=== PATIENT | female | born 2000 | race Caucasian/White ===

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

== ENCOUNTER 2019-01-31 19:59 | Observation (INO) | payer BC ==
[2019-01-31] MEDS ORDERED: Famotidine IV* 10 MG/ML 2 ML (20 mg) ONE ×2 (20:13→20:17)
[2019-01-31] MEDS ORDERED: diPHENhydraMINE IV* 50 MG/ML 1 ml VIAL (BENADRYL) ONE (20:17)
[2019-01-31] MEDS ORDERED: methylPREDNISolone 125 MG* 2 ML VIAL ONE (20:17)
[2019-01-31] MEDS ORDERED: Ondansetron INJ* 2 MG/ML VIAL IV ONE (20:18)
[2019-01-31] MEDS ORDERED: Ondansetron INJ* 2 MG/ML VIAL ONE (20:18)
[2019-01-31] MEDS ORDERED: methylPREDNISolone 125 MG* 2 ML VIAL IV ONE (20:27)
[2019-01-31] MEDS ORDERED: diPHENhydraMINE IV* 50 MG/ML 1 ml VIAL (BENADRYL) IV ONE (20:27)
--- NOTE | 2019-01-31 20:27 | ED ---
Allergic Reaction/Systemic - HPI Summary HPI Summary: The pt is a 18 yr old female presenting to [facility] via EMS c/o allergic reaction beginning 30 minutes [employer]. She was at [facility] and ate a piece of chocolate that had other ingredients listed on it. Immediately after ingesting the piece of chocolate she became SOB and felt her throat tightening. She took 40 mg of Benadryl afterwards but vomited it up 3-4 minutes later. Per the roommate, the pt is developing allergies and does not know exactly what she is allergic to at this point. The pt notes that she has had an allergic reaction of similar severity only once prior to this episode. She self-administered an epi-pen and was given 50 mg Benadryl in the EMS. Pain severity is rated a 2/10. No aggravating factors noted. She also reports nausea, coughing, and chest tightness. - History of Current Complaint Chief Complaint: EDAllergicReaction Hx Obtained From: Patient Onset/Duration: Sudden Onset, Started minutes ago - 30 minutes, Still Present Timing: Constant, Lasting Minutes Severity Initially: Moderate Severity Currently: Mild Pain Intensity: 2 Pain Scale Used: 0-10 Numeric Location: Discrete @ - throat Aggravating Factor(s): Nothing Alleviating Factor(s): Epinephrine, Other - benadryl Associated Signs And Symptoms: Positive: Difficulty Breathing, Nausea, Throat Tightening, Vomiting, Other: - pos - cough, chest tightness - Allergies/Home Medications Allergies/Adverse Reactions: Allergies Allergy/AdvReac Type Severity Reaction Status Date / Time almond Allergy Anaphylatic Verified 01/31/19 20:18 Shock avocado Allergy Unknown Verified 01/31/19 20:57 Reaction Details birch Allergy Anaphylatic Verified 01/31/19 20:18 Shock carrot Allergy Unknown Verified 01/31/19 20:57 Reaction Details cashew nut Allergy Unknown Verified 01/31/19 20:57 Reaction Details celery Allergy Unknown Verified 01/31/19 20:57 Reaction Details cucumber Allergy Unknown Verified 01/31/19 20:57 Reaction Details fish derived Allergy Anaphylatic Verified 01/31/19 20:18 Shock garlic Allergy Unknown Verified 01/31/19 20:57 Reaction Details grass pollen Allergy Unknown Verified 01/31/19 20:57 Reaction Details mold Allergy Unknown Verified 01/31/19 20:18 Reaction Details mushroom Allergy Unknown Verified 01/31/19 20:57 Reaction Details onion Allergy Unknown Verified 01/31/19 20:57 Reaction Details peach Allergy Unknown Verified 01/31/19 20:18 Reaction Details peanut Allergy Unknown Verified 01/31/19 20:57 Reaction Details pecan nut Allergy Anaphylatic Verified 01/31/19 20:18 Shock pistachio nut Allergy Anaphylatic Verified 01/31/19 20:57 Shock ragweed pollen Allergy Unknown Verified 01/31/19 20:57 Reaction Details shellfish derived Allergy Anaphylatic Verified 01/31/19 20:18 Shock squash Allergy Unknown Verified 01/31/19 20:57 Reaction Details tomato Allergy Unknown Verified 01/31/19 20:57 Reaction Details Home Medications: Home Medications Albuterol HFA INHALER* [Ventolin HFA Inhaler*] 2 puff INH Q4H PRN 01/31/19 [ History Confirmed 01/31/19] Cetirizine* [ZyrTEC 10 MG TAB*] 10 mg PO DAILY 01/31/19 [History Confirmed 01/31] EPINEPHrine [Epinephrine] 0.3 mg INJ SEE INSTRUCTIONS 01/31/19 [History Confirmed 01/31/19] Fluticas/Salmet 115/21 HFA(NF) [Advair HFA 115/21 (NF)] 2 puff INH BID 01/31/19 [History Confirmed 01/31/19] Fluticasone HFA 110 mcg(NF) [Flovent HFA 110 mcg(NF)] 1 puff INH DAILY 01/31/19 [History Confirmed 01/31/19] PMH/Surg Hx/FS Hx/Imm Hx Endocrine/Hematology History: Denies: Hx Diabetes Cardiovascular History: Reports: Hx Syncope Denies: Hx Hypertension Sensory History: Reports: Hx Contacts or Glasses Denies: Hx Hearing Aid Opthamlomology History: Reports: Hx Contacts or Glasses Neurological History: Reports: Other Neuro Impairments/Disorders - Syncope - Surgical History Surgical History: None Surgery Procedure, Year, and Place: None. Infectious Disease History: No Infectious Disease History: Denies: Traveled Outside the [place] in Last 30 Days - Family History Known Family History: Positive: Other - breast CA, leukemia - Social History Alcohol Use: Weekly Alcohol Amount: "socially" Hx Substance Use: No Substance Use Type: Reports: None Hx Tobacco Use: No Smoking Status (MU): Never Smoked Tobacco Review of Systems - ROS Summary Review of Systems Summary: Home Medications Medication Instructions Recorded Confirmed Type Ferrous Sulfate TAB* 325 mg PO DAILY 08/08/17 08/08/17 History Methylphenidate ER TAB* [Concerta 72 mg PO QAM 08/08/17 08/08/17 History ER TAB*] Methylphenidate TAB* [Ritalin TAB*] 10 mg PO DAILY 08/08/17 08/08/17 History Acetaminophen TAB* [Tylenol TAB*] 650 mg PO Q4H PRN tab 08/10/17 Rx Amoxicillin PO (*) [Amoxicillin 500 mg PO TID #27 cap 08/10/17 Rx 500 MG CAP*] Benzocaine/Menthol ESPINOZA* 1 espinoza PO Q6H PRN lozenge 08/10/17 Rx [Chloraseptic ESPINOZA*] Ibuprofen TAB* [Motrin TAB* 600 MG] 600 mg PO Q8H PRN tab 08/10/17 Rx predniSONE TAB* [Deltasone 20 MG 20 mg PO DAILY #3 tab 08/10/17 Rx TAB*] Positive: Other - pos - throat tightness Positive: Other - pos - chest tightness Positive: Shortness Of Breath, Cough Positive: Vomiting, Nausea All Other Systems Reviewed And Are Negative: Yes Physical Exam - Summary Physical Exam Summary: General: Well-developed, Well-nourished female. Appears in moderate respiratory discomfort. HEENT: Normocephalic, Atraumatic. Eyes: Conjuctiva normal, PERRL. Ears: TMs within normal limits. Nares: (-) discharge, (-) erythema. Oropharynx: Clear, mucous membranes moist, (-) exudates, Hives present on the inside of mouth. Neck: Soft, FROM, (-) lymphadenopathy, (-) thyromegaly, (-) JVD. Cardiovascular: Normal sinus rhythm, (-) murmur. Lungs: Clear to auscultation bilaterally (-) wheezes, (-) rales, (-) rhonchi. Abdomen: Soft, non-tender, non-distended, (-) organomegaly, normal bowel sounds. Back: (-) CVA tenderness Extremities: No edema. Skin: Warm, dry, (-) rash. Neuro: Alert and oriented x3, no focal deficits. Psychiatric: Moderately anxious appearing. Triage Information Reviewed: Yes Vital Signs On Initial Exam: Initial Vitals Temp Pulse Resp BP Pulse Ox 99.3 F 115 17 138/84 100 01/31/19 20:01 01/31/19 20:01 01/31/19 20:01 01/31/19 20:01 01/31/19 20:01 Vital Signs Reviewed: Yes Procedures - Sedation Patient Received Moderate/Deep Sedation with Procedure: No Diagnostics - Vital Signs Vital Signs Temp Pulse Resp BP Pulse Ox 01/31/19 20:01 99.3 F 115 17 138/84 100 - Laboratory Result Diagrams: 01/31/19 21:14 01/31/19 21:14 Lab Statement: Any lab studies that have been ordered have been reviewed, and results considered in the medical decision making process. - Radiology CXR Radiology Interpretation Completed By: ED Physician Summary of Radiographic Findings: No obvious infiltrate, no pleural effusions, no pneumothorax. Pending official report. Allergic Reaction Course/Dx - Course Course Of Treatment: The pt is a 18 yr old female presenting to [facility] via EMS c/ o allergic reaction beginning 30 minutes [employer]. Test results normal except for WBC @ 12.8, Hgb @ 11.9, MPV @ 6.9, Absolute Neuts @ 8.7, Potassium @ 3.1, CO2 @ 20, Glucose @ 166, Calcium @ 7.8, and Total protein @ 6.2. A CXR reveals: No obvious infiltrate, no pleural effusions, no pneumothorax. Pending official report. In the ED course pt was given 3000 mls fluids, 1mg Ativan, and 8 mg Zofran. Final Dx is allergic reaction. Dr. Harp will admit the pt to [facility]. Pt is agreeable with this plan. - Diagnoses Provider Diagnoses: Allergic reaction - Provider Notifications Discussed Care Of Patient With: Jaida Harp - Dr. Harp will admit pt to [facility]. Time Discussed With Above Provider: 21:00 Instructed by Provider To: Admit As Inpatient Discharge ED - Sign-Out/Discharge Documenting (check all that apply): Patient Departure - admit - Discharge Plan Condition: Stable Disposition: ADMITTED TO [facility] - Billing Disposition and Condition Condition: STABLE Disposition: Admitted to [facility] - Attestation Statements Document Initiated by Scribe: Yes Documenting Scribe: Clark Camilo Provider For Whom Scribe is Documenting (Include Credential): Sylvie Spence MD Scribe Attestation: I, Clark Camilo, scribed for Sylvie Spence MD on 02/01/19 at 0553. Scribe Documentation Reviewed: Yes Provider Attestation: The documentation as recorded by the scribe, Clark Camilo accurately reflects the service I personally performed and the decisions made by me, Sylvie Spence MD Status of Scribe Document: Viewed
[2019-01-31] MEDS ORDERED: Famotidine IV* 10 MG/ML 2 ML (20 mg) IV SLOW PU ONE (20:29)
[2019-01-31] MEDS ORDERED: LORazepam INJ* 2 MG/ML 1 ML VIAL IV PUSH ONE (20:41)
[2019-01-31] MEDS ORDERED: LORazepam INJ* 2 MG/ML 1 ML VIAL ONE (20:41)
[2019-01-31] MEDS: NS 0.9% 1000 ML** 2,000 ML IV ONE (20:41)
[2019-01-31] MEDS ORDERED: Lorazepam PYXIS KEY ONE (20:41)
[2019-01-31] MEDS ORDERED: Lorazepam PYXIS KEY PRN (20:41)
[2019-01-31] MEDS ORDERED: EPINEPHRINE 1 MG/ML 1 ML VIAL ONE (20:43)
[2019-01-31] MEDS ORDERED: NS 0.9% 1000 ML** 1,000 ML IV ONE (21:05)
[2019-01-31 21:24] LABS: ABS Basophils 0.1 10^3/ul (0-0.2); ABS Lymphocytes 3.3 10^3/ul (1.0-4.8); ABS Monocytes 0.7 10^3/ul (0-0.8); ABS Neutrophils 8.7 10^3/ul (1.5-7.7); Eosinophil % 0.2 %; Hematocrit 35 % (35-47); Hemoglobin 11.9 g/dL (12.0-16.0); Lymphocyte % 25.8 %; Mean Corpuscular HGB Conc 34 g/dL (31-36); Mean Corpuscular Hemoglobin 31 pg (27-31); Mean Corpuscular Volume 91 fL (80-97); Mean Platelet Volume 6.9 fL (7.4-10.4); Platelet Count 348 10^3/uL (150-450); Red Blood Count 3.88 10^6 /uL (3.70-4.87); Red Cell Distribution Width 13 % (10-15); White Blood Count 12.8 10^3/uL (3.5-10.8)
[2019-01-31 21:43] LABS: ALT 13 U/L (7-52); AST 16 U/L (13-39); Albumin 3.8 g/dL (3.2-5.2); Albumin/Globulin Ratio 1.6 (1-3); Alkaline Phosphatase 38 U/L (34-104); BUN/Creatinine Ratio 15.6 (8-20); Blood Urea Nitrogen 10 mg/dL (6-24); CO2 Carbon Dioxide 20 mmol/L (22-32); Calcium 7.8 mg/dL (8.6-10.3); EGFR African American 143.1 (>60); EGFR Non-African American 118.3 (>60); Globulin 2.4 g/dL (2-4); Glucose 166 mg/dL (70-100); Potassium 3.1 mmol/L (3.5-5.0); Sodium 140 mmol/L (135-145); Total Protein 6.2 g/dL (6.4-8.9)
[2019-01-31 21:48] LABS: HCG Pregnancy < 0.60 mIU/mL
[2019-01-31] MEDS ORDERED: EPINEPHRINE 1 MG/ML 1 ML VIAL IM PRN (21:50)
[2019-01-31] MEDS ORDERED: Albuterol 2.5 MG/3 ML NEB.SOL* (0.083%) INH PRN (21:56)
[2019-01-31] MEDS ORDERED: Albuterol HFA INHALER* 8 gm MDI INH PRN (21:56)
[2019-01-31] MEDS ORDERED: Acetaminophen TAB* 325 MG PO PRN (21:57)
[2019-01-31] MEDS ORDERED: Al Hydrox/Mg Hydrox/Simet LIQ* 30 ML UDC PO PRN (21:57)
[2019-01-31] MEDS ORDERED: KCL 20 MEQ/100 ML IVPREMIX* 20 MEQ/100 ML BAG IV SCH (22:00)
[2019-01-31 22:19] LABS: Anion Gap 7 mmol/L (2-11); Chloride 113 mmol/L (101-111)
[2019-01-31] MEDS: Cetirizine* 10 MG TAB PO SCH (22:55)
[2019-01-31] MEDS ORDERED: Mometasone/Formoter 200/5 MDI INH SCH (23:45)
--- NOTE | 2019-02-01 00:02 | HP ---
CC: Dr. Santamaria, [facility], [place]; [facility] * HISTORY AND PHYSICAL: DATE OF ADMISSION: 01/31/19 PRIMARY CARE PROVIDER: Physician from [facility], [facility]. CHIEF COMPLAINT: Tingling in the throat, shortness of breath. HISTORY OF PRESENT ILLNESS: Corina Bhakta is a 18-year-old female who was diagnosed with multiple allergy problems this summer. She stated that after 08/08, for some reason, she started developing allergies and has been on several prednisone tapers. The last time she was on prednisone was for 10 days and she had been taking 40 mg daily, stopped it 4 days ago due to "running out of pills". She did not taper it down, she just discontinued it. She stated that she felt well for 3 or 4 days, but today, when she was eating a piece of chocolate snack, she started feeling tingling in her mouth and in her throat. Subsequently, she used an EpiPen and came into the ED for evaluation. Here, she received another 2 EpiPen and after the second EpiPen a dose of Solu-Medrol was administered. Due to multiple repetitive problems with shortness of breath as well as patient desaturating in the emergency department prior to the EpiPen administration, the patient is going to be placed on observation in the ICU. Please note that although patient's oxygen saturations were down and she felt a sensation of her throat closing, there was no description by the emergency department or the patient's nurse that the patient actually had an airway compromise that was visible on evaluation. PAST MEDICAL HISTORY: 1. History of multiple allergies that the patient developed this summer. She had been treated with multiple tapers of steroids. 2. History of ADHD. 3. History of anemia. 4. History of syncopal episodes in the past. PAST SURGICAL HISTORY: None. ALLERGIES: They are all dietary allergies, most of them, and include ALMOND, AVOCADO, BIRCH, CARROT, CASHEW NUT, CELERY, CUCUMBER, FISH DERIVED, GARLIC, GRASS and POLLEN, MOLD, MUSHROOM, ONION, PEACH, PEANUTS, PECANS, PISTACHIOS, RAGWEED POLLEN, SHELLFISH, SQUASH, and TOMATO. MEDICATIONS AT HOME: Include: 1. Advair 115/21 two inhalations b.i.d. 2. EpiPen as needed. 3. Zyrtec 10 mg daily. 4. Albuterol inhaler on a p.r.n. basis. 5. Flovent 110 mcg 1 inhalation daily. 6. Ritalin 10 mg daily. 7. Ferrous sulfate 325 mg daily. 8. Concerta ER 36 mg IM. FAMILY HISTORY: Mother with history of breast cancer, in remission. SOCIAL HISTORY: The patient is an [employer] student. She rarely drinks alcohol. She denies any tobacco or drug use. She is majoring in Chemistry. Her surrogate decision maker is her mother. REVIEW OF SYSTEMS: Please see history of present illness. Other remaining 12 systems were reviewed with the patient and were otherwise negative. PHYSICAL EXAMINATION GENERAL: The patient is a very pleasant 18-year-old female, who is in no acute distress. The patient is alert and oriented x3. VITAL SIGNS: Blood pressure of 143/78, heart rate of 116 and regular, respiratory rate 19, oxygen saturation of 100% on room air, temperature of 99.6. HEENT: Head atraumatic, normocephalic. Eyes: Pupils are equal and reactive to light and accommodation. Oropharynx with what appears to be two erythematous dots in the area of patient's hard palate distally. It appears to be abrasion- like related, but apart from that oropharynx is clear. Mucosa is moist. Tonsils not enlarged. There is no evidence of edema. There is no tongue edema noted. There is no lymphedema noted. NECK: Supple, no JVD. No bruits bilaterally. RESPIRATORY: Clear to auscultation bilaterally. CARDIOVASCULAR: Regular rate and rhythm. No murmur. ABDOMEN: Soft and nontender. Bowel sounds present in all 4 quadrants. EXTREMITIES: Pulses are +2 bilaterally. No clubbing or cyanosis. NEURO: Speech is clear. Cranial nerves II through XII are grossly intact. Motor strength is 5/5 bilaterally. SKIN: On evaluation of the skin, no ecchymotic areas or rashes noted. DIAGNOSTIC STUDIES/LAB DATA: Laboratory data showed sodium of 140, potassium of 3.1, chloride is pending, carbon dioxide 20, BUN 10, creatinine 0.64. Liver function is unremarkable. Beta hCG is below the testable. CBC: White blood cell count of 12.8, hemoglobin of 9.9, hematocrit of 35, and platelets of 348. Portable chest x-ray, reviewed by myself prior to the official radiologist's report, with no evidence of cardiopulmonary abnormalities and the cardiac silhouette appears normal. ASSESSMENT AND PLAN: 1. Allergic reaction, likely food reaction: The patient also mentioned that apart from the chocolate, that she had, she ate salmon, but she is apparently allergic to "fish derived products". She is going to be observed in the intensive care unit due to history of airway compromise in the emergency department that was alleviated by EpiPen and dose of Solu-Medrol. She is going to be continued on Solu-Medrol every 8 hours as well as her Zyrtec and Flovent. We will also continue albuterol inhaler on an as needed basis and albuterol nebulizer. She needs to be observed in the ICU due to her history of desaturations and possibility of airway compromise that was experienced in the emergency department. 2. The patient has history of multiple food allergies: The patient is planning to see Dr. Santamaria from [facility] at the beginning of February. We did discuss that she probably should be seen sooner with her problems since she had been on and off of prednisone for the past several months. 3. For DVT prophylaxis, the patient is going to be placed on ambulation and she is low risk. TIME SPENT: Approximately 55 minutes were spent on the admission of this patient, more than half that time was spent [id number] with the patient, doing the interview and physical exam. [id number]/CPS #: [id number] MARIA ELENA
[2019-02-01] MEDS ORDERED: Potassium Chlor TAB* 20 MEQ TAB.ER PO ONE (01:08)
[2019-02-01] MEDS: Mometasone/Formoter 200/5 MDI INH SCH ×2 (06:41→07:22)
[2019-02-01] MEDS ORDERED: methylPREDNISolone SOD 40 MG* 1 ML VIAL IV SCH (08:00)
[2019-02-01] MEDS ORDERED: Methylphenidate TAB* 10 MG PO SCH (09:00)
[2019-02-01] MEDS ORDERED: Methylphenidate ER TAB* 18 MG PO SCH (09:00)
[2019-02-01] MEDS ORDERED: Influenza VAC *QUAD* 2019-20* 0.5 ML SYRINGE IM ONE (09:00)
--- NOTE | 2019-02-01 10:26 | PN ---
Subjective Date of Service: 02/01/19 Interval History: HD2 18 F PMH ADD, food allergy who presented with sx of mouth tingling after eating food, concerning for anaphylaxisis. She was monitored in the ICU overnight on methylpred and benadryl s/p epipen use. Overnight, no acute events, VSS This morning, spoke with mother and daughter. No further episodes overnight, we discuss need for routine primary care, role anxiety may be playing as well as careful attention to allergy and not straying outside of known foods. Pt has no further complaints, would like to go home, long discussion about managing this better as outpt. Objective Active Medications: Acetaminophen (Tylenol Tab*) 650 mg PO Q4H PRN PRN Reason: PAIN-MILD/TEMP >/= 100.4 Al Hydrox/Mg Hydrox/Simethicone (Maalox Plus*) 30 ml PO Q6H PRN PRN Reason: INDIGESTION Albuterol (Ventolin 2.5 Mg/3 Ml Neb.Tabby*) 2.5 mg INH Q2H PRN PRN Reason: SOB/WHEEZING Albuterol (Ventolin Hfa Inhaler*) 2 puff INH Q4H PRN PRN Reason: SHORTNESS OF BREATH Cetirizine HCl (Zyrtec*) 10 mg PO DAILY [facility] Last Admin: 01/31/19 22:55 Dose: 10 mg Epinephrine HCl (Adrenalin 1 Mg/Ml) 0.3 mg IM ONCE PRN PRN Reason: sensation of throat closing Methylphenidate HCl (Concerta Er Tab*) 36 mg PO QAM [facility] Methylphenidate HCl (Ritalin Tab*) 10 mg PO DAILY [facility] Methylprednisolone Sodium Succinate (Solu-Medrol 40 Mg) 40 mg IV Q8H [facility] Last Admin: 02/01/19 08:59 Dose: 40 mg Miscellaneous (Ativan Pyxis Maynard) 1 ea N/A .ATIVAN IV MAYNARD PRN PRN Reason: PYXIS MAYNARD Mometasone Furoate (Asmanex 220 Mcg Mdi *) 1 puff INH QPM [facility] Mometasone Furoate/Formoterol Fumar (Dulera 200/5 Mdi*) 2 puff INH RT.BID [facility] Last Admin: 02/01/19 07:22 Dose: 2 puff Vital Signs - 8 hr 02/01/19 02/01/1919 03:00 03:02 03:32 Temperature Pulse Rate 81 81 Respiratory 15 16 18 Rate Blood Pressure 98/47 105/66 (mmHg) O2 Sat by Pulse 95 94 Oximetry 02/01/19 02/01/19 02/01/19 03:43 04:00 04:01 Temperature 98.8 F Pulse Rate 79 80 Respiratory 15 15 Rate Blood Pressure 100/52 (mmHg) O2 Sat by Pulse 97 97 Oximetry 02/01/19 02/01/19 02/01/19 05:00 05:01 05:38 Temperature Pulse Rate 81 80 75 Respiratory 9 14 18 Rate Blood Pressure 103/59 103/59 (mmHg) O2 Sat by Pulse 97 97 97 Oximetry 02/01/19 02/01/19 02/01/19 06:00 07:00 07:23 Temperature Pulse Rate 74 84 81 Respiratory 17 14 20 Rate Blood Pressure 111/68 100/53 (mmHg) O2 Sat by Pulse 99 96 96 Oximetry 02/01/19 02/01/19 02/01/19 08:00 09:00 10:00 Temperature 98.5 F Pulse Rate 81 87 88 Respiratory 14 16 14 Rate Blood Pressure 110/59 108/60 99/79 (mmHg) O2 Sat by Pulse 97 96 100 Oximetry Oxygen Devices in Use Now: None Appearance: No acute distress no oral swelling Eyes: No Scleral Icterus, PERRLA Ears/Nose/Mouth/Throat: NL Teeth, Lips, Gums, Clear Oropharnyx, Mucous Membranes Moist Neck: NL Appearance and Movements; NL JVP, Trachea Midline Respiratory: Symmetrical Chest Expansion and Respiratory Effort, Clear to Auscultation Cardiovascular: NL Sounds; No Murmurs; No JVD, RRR Abdominal: NL Sounds; No Tenderness; No Distention, No Hepatosplenomegaly Lymphatic: No Cervical Adenopathy Extremities: No Edema Skin: No Rash or Ulcers Neurological: Alert and Oriented x 3 Result Diagrams: 01/31/19 21:14 01/31/19 21:14 Microbiology and Other Data: Microbiology 01/31/19 22:45 Nasal Screen MRSA (PCR) - Final Nasal Mrsa Not Detected Assess/Plan/Problems-Billing Assessment: 18 F PMH ADD, food allergy who presented with sx of mouth tingling after eating food, concerning for anaphylaxisis. She was monitored in the ICU overnight on methylpred and benadryl s/p epipen use. - Patient Problems (1) Anaphylactic reaction Current Visit: Yes Status: Acute Code(s): T78.2XXA - ANAPHYLACTIC SHOCK, UNSPECIFIED, INITIAL ENCOUNTER SNOMED Code(s): 72368190 Comment: - Pt with NUMEROUS food allergies, needs to establish with allergy, also discuss behaviors as well as anxiety underlying this condition (2) Food allergy Current Visit: Yes Status: Acute Code(s): Z91.018 - ALLERGY TO OTHER FOODS SNOMED Code(s): 190064056 Comment: - Careful advancmenet (3) ADHD Current Visit: Yes Status: Acute Comment: - Concerta 36 with PRN booster 10, counseled NOT to use booster daily (4) DVT prophylaxis Current Visit: No Status: Acute Code(s): FKO3082 - SNOMED Code(s): 642381707 Comment: ambulation (5) Full code status Current Visit: No Status: Acute Code(s): Z78.9 - OTHER SPECIFIED HEALTH STATUS SNOMED Code(s): 159995387 Status and Disposition: DC to home
[2019-02-01] MEDS: Cetirizine* 10 MG TAB PO SCH (11:04)
[2019-02-01 11:13] VITALS: BP 133/78
--- NOTE | 2019-02-01 13:36 | DS ---
CC: [facility]; Dr. Bk Santamaria DISCHARGE SUMMARY: DATE OF ADMISSION: 01/31/19 DATE OF DISCHARGE: 02/01/19 PRIMARY CARE PROVIDER: [facility]. ALLERGY PROVIDER: Dr. Bk Santamaria. DISPOSITION AT THE TIME OF DISCHARGE: Stable to be discharged to home. PRIMARY DIAGNOSIS: Anaphylactic reaction secondary to food allergy. SECONDARY DIAGNOSES: 1. Known food allergies. 2. Anxiety. 3. Attention deficit hyperactivity disorder. 4. Seasonal allergies. MEDICATIONS AT THE TIME OF DISCHARGE: 1. EpiPen 0.3 mg p.r.n. for anaphylactic like symptoms. 2. Prednisone 20 mg by mouth for 2 days, followed by 10 mg by mouth for 2 days, followed by 5 mg by mouth for 2 days. 3. Cetirizine 10 mg p.o. daily. 4. Diphenhydramine 50 mg p.o. q.8 hours p.r.n. 5. Albuterol 2 puffs inhaled q.4 hours p.r.n. for shortness of breath. 6. Asmanex 1 puff inhaled q.p.m. 7. Flonase 2 sprays in each nostril daily p.r.n. 8. Ferrous sulfate 325 mg p.o. daily. 9. Fluticasone/salmeterol 2 puffs inhaled b.i.d. Medication changes on this hospitalization include: 1. The addition of prednisone. 2. Also moving Zyrtec to daily instead of p.r.n. HISTORY OF PRESENT ILLNESS AND HOSPITAL COURSE: This is a 18-year-old female, student at [employer], who presented to the emergency room with a sensation that her throat was swelling after eating a dessert from [employer] that may have had nuts in it. The patient has had extensive food allergies sanchez t have worsened since October of 2018. She is originally from [place] and she follows with an aller gist there in [place]. Although she has not established with allergy care in [place], she has an appointment for the first week of February with [facility] to establish care and deter mine if further testing is needed. She reports mostly allergies to fish-like products, any nuts and some vegetables, although she does report that like meats and bread are generally safe. She has had a hard time not trying new foods since returning to college and as soon as she had the symptoms of th roat swelling and the sensation that her throat would close, she decided to present to the emergency room. She did give herself EpiPen prior to arrival as well as 1 dose of Benadryl. In the emergency room, her vital signs were generally stable. She did have 1 desaturating event to 90% while on room air, but she presented at a saturation rate of 100% on room air. Her physical exam was noted for nor mal oropharynx with the exception of 2 erythematous dots on the hard palate that seemed to be abrasio n related, but no tongue edema, no lymphedema, and no other oropharynx edema. She does have her tons ils present. Her labs were notable for mildly low potassium at 3.1 and for anemia with a hemoglobin of 9.9. She was admitted to the hospital with her hospital course by problems as follows: 1. Allergic reaction with anaphylaxis like symptoms, likely food reaction. The patient was admitted to the ICU for observation. She was given Solu-Medrol every 8 hours as well as Zyrtec, Flovent. Lance arevalo had no further episodes overnight and her symptoms seemed to be alleviated by EpiPen and 1 dose of Solu-Medrol in the emergency room. She had no further desaturations or airway compromise and she was stable for discharge by hospital day 2. It is recommended that the patient take Zyrtec daily instea d of as needed and also keep careful control of her diet and not deviate from her known safe foods un til she establishes with Allergy to discuss whether further skin testing is needed or if she has a co mponent of angioedema secondary to another source that is not food allergy driven at all. 2. ADHD. The patient's home medications were continued. There was a discussion if anxiety was cont ributing to some of her symptoms and this bedside conversation happened between her mother and myself . She agrees to start seeing counselor and they declined pharmacotherapy at this time as they prefer to establish with Allergy to continue to work up the allergy symptoms and be mindful that anxiety wh ile appropriate response to anaphylactic type reactions could be worsening some of her symptoms. 3. Multiple allergies. As per above. She is going to follow with Dr. Santamaria's group in the near fut ure. She is actually going home for a fall break this week and plans to also follow up with her home etcher hand in the interim. 4. History of anemia. This is most likely secondary to menstrual period. She is already on iron. 5. History of asthma. She is currently optimized on inhaled corticosteroid and short-acting beta ag onist. On the day of discharge, the patient tolerated turkey sandwich. She is ambulating. She has no furthe r symptoms. Oropharynx is clear. Vital signs are stable, and she feels amenable for discharge. LABS AND STUDIES DONE DURING THIS HOSPITALIZATION: Labs on presentation: White blood cell count 12. 8, hemoglobin 11.9, hematocrit 35, and platelets 348. BMP notable for sodium 140, potassium 3.1, chl oride 113, carbon dioxide 20, anion gap 7, BUN 10, creatinine 0.64, and glucose 166. LFTs unremarkab le. Beta hCG is negative. Imaging included a chest x-ray, which shows no acute intrapulmonary process and no other imaging was done. CONSULTANTS DURING THIS HOSPITALIZATION: None. ITEMS TO FOLLOW UP ON STATUS POST DISCHARGE: 1. Multiple food allergies with anaphylactic like reaction. Again, the patient could have underlyin g other sources for angioedema. She has no new medications. She does have multiple food allergies an d some underlying anxiety. She plans to follow up with an etcher hand locally to determine if further allergy testing or allergy sensitization is warranted in her case. Her mother is involved in her car e and she does have an etcher hand in her hometown of [place]. Nonetheless for food allergies, env ironmental allergies, the patient will be continued on Zyrtec daily, Benadryl as needed and a very br ief prednisone taper. We recommend that the patient follow up with a counselor for underlying anxiet y and encouraged her to not deviate outside of known safe food choices, which has been difficult for her given her age and impulsivity related with her ADHD. 2. Underlying anxiety. Again, the patient is not forthcoming with anxiety symptoms initially, altho ugh she does seem to have clear anxiety related with her allergies and limitations on her college exp erience. Recommended counseling at [facility] and the patient reports she will continue t o follow with primary care. If the patient wishes to establish with primary care outside of the [facility] with a dedicated public relations specialist, the names of [facility], Dr. Sarah resendez and Dr. Brandon Reynoso are given. It may be more appropriate for the patient to follow up given her mul tiple medical issues and history. TIME SPENT: Forty minutes was spent on the planning of this discharge with over half of that spent d irectly at the bedside of the patient providing direct patient care and counseling. The patient and her mother agree with her discharge plan and have no further questions. Medications are called in to [facility] include prednisone taper, refills on EpiPen, and the instructions to Zyrtec daily and avoid foods that can cause such reactions. Teach-back is performed at the bedside. This discharge summary is a of care that happened over the course of 48 hours. If there are a ny questions about the specifics, please do not hesitate to contact me directly, my cellphone is [phone]. [id number]/[facility] #: [id number]
[2019-02-01] MEDS ORDERED: Mometasone 220 MCG MDI INH SCH (18:00)
== END 2019-02-01 12:15 | disposition home or self-care (01) ==
LOC: ED 19:59 → ICU 21:57
PROVIDERS: ADMIT Internal Medicine; ATTEND Internal Medicine
DX: T78.09XA Anaphylactic reaction due to other food products, initial encounter (principal); R06.02 Shortness of breath; F41.9 Anxiety disorder, unspecified; F90.9 Attention-deficit hyperactivity disorder, unspecified type; Z91.048 Other nonmedicinal substance allergy status
CPT/HCPCS: 36415; 71045; 80053; 84702; 85025; 87641; 90471; 94640; 96361; 96365; 96375; 99285; A9270-GY; G0008; G0378; J1200; J2060; J2405; J2920; J2930; J3480

== ENCOUNTER 2019-02-02 17:09 | Emergency (ER) | payer BC ==
--- NOTE | 2019-02-02 17:47 | ED ---
Dizziness - HPI Summary HPI Summary: Pt is a 18 y/o F presenting to the ED for a chief complaint of dizziness. On , pt awoke feeling dizzy and shaky. Pt went to class and continued to feel dizzy as well as fatigue and generalized weakness upon standing. Pt felt she would have a syncopal episode. Pt admits nausea and a swollen tongue. Pt denies vomiting. Pt ate a breakfast of cereal and an [place] muffin on 02/02/19 , but has not eaten since breakfast. Pt denies nausea before or while eating breakfast. Pt was [place] [facility] [place] for an allergic reaction due to possible exposure to tree nuts. At that time, pt had throat tightening that has since resolved. Pt was given 3 doses of epinephrine and admitted to [facility] for observation at the ICU overnight. Pt states before this episode, pt last had an allergic reaction in October 2018. Pt carries 4 EpiPens with her. Pt states she is allergic to several allergens. Pt states she gets red bumps in the back of the throat during an allergic reaction. Pt takes Concerta 36 mg and Ritalin 10 mg on school days. Pt also takes iron supplements for a PMHx of anemia. LNMP was on 01/08/19. - History Of Current Complaint Chief Complaint: EDDizziness Stated Complaint: ALLERGIC REACTION PER EMS Time Seen by Provider: 02/02/19 17:26 Hx Obtained From: Patient Onset/Duration: Suddenly Timing: Minutes Severity Initially: Moderate Severity Currently: Moderate Character: Weak, Dizzy Aggravating Factor(s): Position Change Alleviating Factor(s): Nothing Associated Signs And Symptoms: Positive: Nausea, Other: - Positive dizziness, fatigue, generalized weakness, pre-syncope, swollen tongue. Negative: Vomiting - Allergies/Home Medications Allergies/Adverse Reactions: Allergies Allergy/AdvReac Type Severity Reaction Status Date / Time almond Allergy Anaphylatic Verified 02/02/19 17:33 Shock avocado Allergy Unknown Verified 02/02/19 17:33 Reaction Details birch Allergy Anaphylatic Verified 02/02/19 17:33 Shock carrot Allergy Unknown Verified 02/02/19 17:33 Reaction Details cashew nut Allergy Unknown Verified 02/02/19 17:33 Reaction Details celery Allergy Unknown Verified 02/02/19 17:33 Reaction Details cucumber Allergy Unknown Verified 02/02/19 17:33 Reaction Details fish derived Allergy Anaphylatic Verified 02/02/19 17:33 Shock garlic Allergy Unknown Verified 02/02/19 17:33 Reaction Details grass pollen Allergy Unknown Verified 02/02/19 17:33 Reaction Details mold Allergy Unknown Verified 02/02/19 17:33 Reaction Details mushroom Allergy Unknown Verified 02/02/19 17:33 Reaction Details onion Allergy Unknown Verified 02/02/19 17:33 Reaction Details peach Allergy Unknown Verified 02/02/19 17:33 Reaction Details peanut Allergy Unknown Verified 02/02/19 17:33 Reaction Details pecan nut Allergy Anaphylatic Verified 02/02/19 17:33 Shock pistachio nut Allergy Anaphylatic Verified 02/02/19 17:33 Shock ragweed pollen Allergy Unknown Verified 02/02/19 17:33 Reaction Details shellfish derived Allergy Anaphylatic Verified 02/02/19 17:33 Shock squash Allergy Unknown Verified 02/02/19 17:33 Reaction Details tomato Allergy Unknown Verified 02/02/19 17:33 Reaction Details PMH/Surg Hx/FS Hx/Imm Hx Previously Healthy: Yes Endocrine/Hematology History: Reports: Hx Anemia - Iron deficient anemia Denies: Hx Diabetes Cardiovascular History: Reports: Hx Syncope Denies: Hx Hypertension Respiratory History: Reports: Hx Asthma - Allergy induced asthma, Hx Seasonal Allergies Musculoskeletal History: Reports: Hx Scoliosis, Other Musculoskeletal History - Broke left wrist in 2007 Sensory History: Reports: Hx Contacts or Glasses Denies: Hx Legally Blind, Hx Deafness, Hx Hearing Aid Opthamlomology History: Reports: Hx Contacts or Glasses Denies: Hx Legally Blind EENT History: Denies: Hx Deafness Neurological History: Reports: Other Neuro Impairments/Disorders - Syncope Psychiatric History: Reports: Hx Anxiety, Hx Attention Deficit Hyperactivity Disorder - Surgical History Surgical History: None Surgery Procedure, Year, and Place: None. Infectious Disease History: No Infectious Disease History: Denies: Traveled Outside the [place] in Last 30 Days - Family History Known Family History: Positive: Other - breast CA, leukemia - Social History Occupation: Student Alcohol Use: Weekly Alcohol Amount: "socially" Hx Substance Use: No Substance Use Type: Reports: None Hx Tobacco Use: No Smoking Status (MU): Never Smoked Tobacco Review of Systems Positive: Fatigue Positive: Other - Positive swollen tongue; throat tightening, resolved Positive: Nausea. Negative: Vomiting Neurological: Other - Positive pre-syncope and dizziness on standing; "shaky" Positive: Weakness - Generalized All Other Systems Reviewed And Are Negative: Yes Physical Exam - Summary Physical Exam Summary: Appearance: The patient is well-nourished in no acute distress and in no acute pain. Skin: The skin is warm and dry, and skin color reflects adequate perfusion. HEENT: The head is normocephalic and atraumatic. The pupils are equal and reactive. The conjunctivae are clear and without drainage. Nares are patent and without drainage. Mouth reveals moist mucous membranes, and the throat is without erythema and exudate. The external ears are intact. The ear canals are patent and without drainage. The tympanic membranes are intact. Neck: The neck is supple with full range of motion and non-tender. There are no carotid bruits. There is no neck vein distension. Respiratory: Chest is non-tender. Lungs are clear to auscultation and breath sounds are symmetrical and equal. Cardiovascular: Heart is regular rate and rhythm. There is no murmur or rub auscultated. There is no peripheral edema and pulses are symmetrical and equal. Abdomen: The abdomen is soft and non-tender. There are normal bowel sounds heard in all four quadrants and there is no organomegaly palpated. Musculoskeletal: There is no back tenderness noted. Extremities are non-tender with full range of motion. There is good capillary refill. There is no peripheral edema or calf tenderness elicited. Neurological: Patient is alert and oriented to person, place and time. The patient has symmetrical motor strength in all four extremities. Cranial nerves are grossly intact. Deep tendon reflexes are symmetrical and equal in all four extremities. Psychiatric: The patient has an appropriate affect and does not exhibit any anxiety or depression. Triage Information Reviewed: Yes Vital Signs On Initial Exam: Initial Vitals Temp Pulse Resp BP Pulse Ox 97.6 F 96 20 133/81 100 02/02/19 17:10 02/02/19 17:10 02/02/19 17:10 02/02/19 17:10 02/02/19 17:10 Vital Signs Reviewed: Yes Procedures - Sedation Patient Received Moderate/Deep Sedation with Procedure: No Diagnostics - Vital Signs Vital Signs Temp Pulse Resp BP Pulse Ox 02/02/19 17:23 87 132/88 02/02/19 17:16 96 20 132/88 100 02/02/19 17:10 97.6 F 96 20 133/81 100 - Laboratory Result Diagrams: 02/02/19 18:33 02/02/19 18:33 Lab Statement: Any lab studies that have been ordered have been reviewed, and results considered in the medical decision making process. Dizzy Course/Dx - Course Course Of Treatment: I'm not sure of the etiology of Ms. Bhakta's symptomatology. She was nontoxic in appearance with stable vitals here. She got a liter of fluid and was up walking around without complaints. Labs are unremarkable. - Diagnoses Provider Diagnoses: Weakness Discharge ED - Sign-Out/Discharge Documenting (check all that apply): Patient Departure - Discharge - Discharge Plan Condition: Stable Disposition: HOME Patient Education Materials: Weakness (ED) Referrals: [facility] [Outside] Additional Instructions: Follow up with your primary care provider in 2-3 days. Return to the ED for any new or worsening symptoms. - Billing Disposition and Condition Condition: STABLE Disposition: Home - Attestation Statements Document Initiated by Scribe: Yes Documenting Scribe: Usha Forrester Provider For Whom Scribe is Documenting (Include Credential): Clovis Ji MD Scribe Attestation: IUsha, scribed for Clovis Ji MD on 02/02/19 at 2114. Scribe Documentation Reviewed: Yes Provider Attestation: The documentation as recorded by the Usha james accurately reflects the service I personally performed and the decisions made by me, Clovis Ji MD Status of Scribe Document: Viewed
[2019-02-02] MEDS ORDERED: Ondansetron INJ* 2 MG/ML VIAL IV ONE (17:59)
[2019-02-02] MEDS ORDERED: NS 0.9% 1000 ML** 1,000 ML IV ONE (17:59)
[2019-02-02 18:40] LABS: ABS Lymphocytes 2.7 10^3/ul (1.0-4.8); ABS Monocytes 0.6 10^3/ul (0-0.8); ABS Neutrophils 8.3 10^3/ul (1.5-7.7); Hematocrit 36 % (35-47); Hemoglobin 12.3 g/dL (12.0-16.0); Lymphocyte % 23.3 %; Mean Corpuscular HGB Conc 34 g/dL (31-36); Mean Corpuscular Hemoglobin 31 pg (27-31); Mean Corpuscular Volume 91 fL (80-97); Mean Platelet Volume 6.8 fL (7.4-10.4); Platelet Count 316 10^3/uL (150-450); Red Blood Count 3.98 10^6 /uL (3.70-4.87); Red Cell Distribution Width 13 % (10-15); White Blood Count 11.7 10^3/uL (3.5-10.8)
[2019-02-02 18:58] LABS: ALT 15 U/L (7-52); AST 15 U/L (13-39); Albumin/Globulin Ratio 1.6 (1-3); Alkaline Phosphatase 37 U/L (34-104); Anion Gap 6 mmol/L (2-11); BUN/Creatinine Ratio 15.3 (8-20); Blood Urea Nitrogen 9 mg/dL (6-24); C Reactive Protein < 1.00 mg/L (<8.01); CO2 Carbon Dioxide 24 mmol/L (22-32); Calcium 8.9 mg/dL (8.6-10.3); Chloride 109 mmol/L (101-111); EGFR African American 157.2 (>60); EGFR Non-African American 129.9 (>60); Globulin 2.5 g/dL (2-4); Glucose 91 mg/dL (70-100); Potassium 3.4 mmol/L (3.5-5.0); Sodium 139 mmol/L (135-145); Total Protein 6.5 g/dL (6.4-8.9)
[2019-02-02 18:59] LABS: Troponin I 0.01 ng/mL (<0.04)
[2019-02-02 21:00] VITALS: BP 111/67
== END 2019-02-02 21:06 | disposition home or self-care (01) ==
LOC: ED 17:09
DX: R53.1 Weakness (principal); R53.83 Other fatigue; R42 Dizziness and giddiness; R11.0 Nausea; K14.8 Other diseases of tongue; Z91.018 Allergy to other foods; Z91.010 Allergy to peanuts; Z91.013 Allergy to seafood; Z91.048 Other nonmedicinal substance allergy status
CPT/HCPCS: 36415; 80053; 84484; 85025; 86140; 96361; 96374; 99283; J2405